=== PATIENT | male | born 1950 | race Caucasian/White ===

== ENCOUNTER 2021-11-01 17:29 | Inpatient (IN) | payer MEDICARE, SELFPAY ==
--- NOTE | ~2021-11-01 | XR_ITS ---
MODIFIED ESOPHAGRAM HISTORY: Dysphagia post recent cervical spinal fusion. TECHNIQUE: Modified barium esophagram was performed on 11/05/2021. I administered fluoroscopy and per formed the exam with speech pathologist. Patient was seated for lateral fluoroscopic imaging for ing estion of thin liquids, pudding, solids and quantified amounts, followed by thin liquids in uncontrol led amounts. This was recorded on tape. No fluoroscopic images were recorded. The DAP for this proced ure was 3.206 Gycm2. The amount of fluoroscopy time used during this procedure was 3.2 minutes. FINDINGS: Oral stage: Adequate function. Pharyngeal stage: There is vallecular residue with all consistencies the majority of which cleared wi th a second swallow. Minimal residue within the piriform sinus with solids. No laryngeal penetration or aspiration. Cervical/esophageal stage: Adequate function. IMPRESSION: Mild pharyngeal dysphagia with some residue in the vallecula and piriform sinus but no pe netration or aspiration. Please correlate with speech pathologist findings and specific feeding cecilia mmendations. Reviewed, dictated and finalized at location D. R IMPRESSION: Mild pharyngeal dysphagia with some residue in the vallecula and pi riform sinus but no penetration or aspiration. Please correlate with speech pa thologist findings and specific feeding recommendations.
[2021-11-01 18:00] VITALS: BP 109/58; PULSE 84; RESP 18; TEMP 36.8; O2SAT 98
[2021-11-01 19:20] VITALS: BMI 28.0
[2021-11-01 19:25] VITALS: BMI 28.0
[2021-11-01] MEDS: HYDROcodone/acetaminophen (*CRX) 5-325 MG TABLET 1 TAB FEED TUBE (19:55)
[2021-11-01] MEDS: SERTRALINE HCL 50 MG TABLET 150 MG FEED TUBE (20:19)
[2021-11-01] MEDS: TIZANIDINE HCL 4 MG TABLET FEED TUBE (20:20)
--- NOTE | 2021-11-01 20:22 | ADMGEN ---
This patient, Tripp Haywood, was admitted to 2nd Floor Room 205-1. Patient oriented to hospital policies and general routines including ID bracelet, bed and alarms, pain management, procedures, bathroom and other care routines, personal items, smoking policy, room service/diet, and visiting hours. Information on how to activate the Rapid Response Team has been discussed. Patient is encouraged to report perceived risks to care and to ask questions if they do not understand what they are told or what they should do.
--- NOTE | 2021-11-01 22:10 | PC.NURSE ---
Completed patient rounding. Patient is resting comfortably in bed. Patient stated that he did not need anything else at this time, and that his pain level was still manageable.
--- NOTE | 2021-11-01 23:37 | PM.IMHP ---
H&P: HPI History of Present Illness Date/Time: 11/01/21 23:37 Chief Complaint: weakness Narrative: 70-year-old man with a history of cervical myelopathy was admitted to [facility] for his C6 cervical corpectomy on October 08. Patient had retro pharyngeal swelling and dysphagia after his surgery. An NG and then ultimately a PEG tube was placed. Patient underwent decompression and posterior fusion C4 through T1 on 10/29/2021. He has remained NPO. Patient has not had much improvement in his strength but improvement and numbness of his lower extremities since the surgery. He also has ongoing lumbar spinal stenosis. Review of Systems Review of Systems: All systems reviewed & are unremarkable except as noted in HPI and below Constitutional: Constitutional: Denies chills, Reports difficulty sleeping and Denies fever(s) Eyes: Eyes: Denies blurry vision, Denies change in vision and Denies diplopia ENT: Denies nasal congestion, Denies nasal discharge and Reports neck pain Cardiovascular: Cardiovascular: Denies chest pain, Denies syncope, Denies leg edema and Denies palpitations Respiratory: Respiratory: Denies cough, Denies dyspnea and Denies stridor Gastrointestinal: Gastrointestinal: Denies constipation, Denies diarrhea, Denies nausea and Denies vomiting Genitourinary: Comments: Urinary retention Musculoskeletal: Musculoskeletal: Denies arthralgias, Denies joint swelling, Reports neck pain and Denies numbness Integumentary/Breasts: Skin/Breast: Denies pruritus, Denies lesions, Denies rash and Reports wounds Neurologic: Denies vertigo, Denies dizziness, Denies syncope and Reports focal weakness Hematologic/Lymphatic: Hematologic/Lymphatic: Denies easy bleeding and Denies easy bruising Allergic/Immunologic: Allergic/Immunologic: Denies urticaria, Denies lip swelling and Denies throat swelling [facility] Past Medical History Medical History (Updated 11/01/21 @ 23:57 by Bandar Joe MD) Dyslipidemia Dysphagia Hypertension Lumbar spinal stenosis Urinary retention Surgical History Surgical History (Updated 11/01/21 @ 23:59 by Bandar Joe MD) H/O cervical spine surgery Hx of lumbosacral spine surgery X3 Family History Family History (Updated 11/01/21 @ 19:37 by Kyara Scruggs RN) Father Acute myocardial infarction Other Hypertension Social History Social History Smoking status: Never smoker Second hand tobacco smoke exposure: No Alcohol intake: former Drinks per week: 24 Substance use: former Substance use type: marijuana Other substance usage details: just when he was a kid Spiritual care concerns: No Meds Home Medications and Allergies Home Medications Medication Instructions Recorded Confirmed Type aspirin [Adult Low Dose Aspirin] 81 mg PO DAILY 11/01/21 11/01/21 History atorvastatin 40 mg FEEDING TUBE DAILY 11/01/21 11/01/21 History docusate sodium [Colace] 50 mg FEEDING TUBE DAILY PRN 11/01/21 11/01/21 History doxazosin 2 mg FEEDING TUBE DAILY 11/01/21 11/01/21 History hydrochlorothiazide 12.5 mg FEEDING TUBE DAILY 11/01/21 11/01/21 History hydrocodone-acetaminophen [Lehr] 1 tablet FEEDING TUBE Q4H PRN 11/01/21 11/01/21 History lisinopril 10 mg FEEDING TUBE DAILY 11/01/21 11/01/21 History bsvdhgcxbnyf-pfudxycu-jxfyey 1 tablet FEEDING TUBE DAILY 11/01/21 11/01/21 History [Centrum Silver] omega-3 fatty acids [Fish Oil 1,000 mg FEEDING TUBE DAILY 11/01/21 11/01/21 History Concentrate] sertraline [Zoloft] 150 mg FEEDING TUBE HS 11/01/21 11/01/21 History sildenafil [Viagra] 100 mg FEEDING TUBE DAILY PRN 11/01/21 11/01/21 History tizanidine 4 mg FEEDING TUBE Q6H PRN 11/01/21 11/01/21 History Allergies Allergy/AdvReac Type Severity Reaction Status Date / Time No Known Drug Allergies Allergy Other Verified 11/01/21 18:27 Vital Signs Vital Signs - 24 hr 11/01/21 18:00 Temperature 36.8 C Pulse Rate 84 Respiratory Rate 18 Blood Pr
[2021-11-02] VITALS: BP 109/71; PULSE 77; RESP 16; TEMP 36.8; O2SAT 96
--- NOTE | 2021-11-02 02:10 | PC.NURSE ---
Completed patient rounding. Patient stated pain is back up to a 6, and requested pain medication and kleenex. Patient given meds and kleenex, and prepared to go back to sleep.
[2021-11-02] MEDS: HYDROcodone/acetaminophen (*CRX) 5-325 MG TABLET 1 TAB FEED TUBE ×2 (02:14→06:31)
[2021-11-02 08:00] VITALS: BP 132/74; PULSE 84; RESP 22; TEMP 36.8; O2SAT 97
[2021-11-02 08:29] LABS: Basophils Absolute Auto 0.03 K/mm3 (0.00-0.10); Basophils Percent Auto 0.3 % (0.0-1.0); Eosinophils Absolute Auto 0.31 K/mm3 (0.02-0.50); Eosinophils Percent Auto 2.8 % (1.0-6.0); Hemoglobin 11.9 g/dL (12.4-15.3); Immature Granulocyte Absolute 0.03 K/mm3 (0.00-0.00); Immature Granulocyte Percent A 0.3 % (0.0-0.0); Lymphocytes Absolute Auto 1.11 K/mm3 (1.10-4.50); Mean Corpuscular Hemoglobin 30.2 pg (27.0-31.0); Mean Corpuscular Volume 88.8 fL (78.0-102.0); Mean Platelet Volume 9.4 fl (8.7-11.0); Monocytes Percent Auto 11.7 % (2.0-11.0); Neutrophils Absolute Auto 8.4 K/mm3 (1.7-7.2); Neutrophils Percent Auto 74.9 % (50.0-70.0); Platelet Count Result 264 K/mm3 (150-420); Red Blood Count 3.94 M/mm3 (4.70-6.10); Red Cell Distribution Width 12.5 % (11.6-14.4); White Blood Count 11.2 K/mm3 (4.8-10.8)
[2021-11-02 09:46] LABS: Alanine Aminotransferase 25 U/L (16-63); Albumin Level 2.6 g/dL (3.4-5.0); Alkaline Phosphatase 63 U/L (46-116); Anion Gap 9 mmol/L (8-16); Aspartate Amino Transferase 16 U/L (15-37); Bilirubin,Total 0.4 mg/dL (0.00-1.00); Blood Urea Nitrogen 15 mg/dL (7-18); Calcium 8.4 mg/dL (8.5-10.1); Carbon Dioxide 30 mmol/L (21-32); Chloride 97 mmol/L (98-108); Estimated CRCL calculation 86 ml/min; Estimated Glomerular Filt Rate > 60; Glucose 130 mg/dL (70-99); Osmolality Calculated 284 mOsm/kg (285-295); Potassium 4.1 mmol/L (3.5-5.1); Sodium 136 mmol/L (136-145); Total Protein 6.2 g/dL (6.4-8.2)
[2021-11-02] MEDS: ASPIRIN 81 MG CHEWABLE TABLET FEED TUBE (10:06)
[2021-11-02] MEDS: ATORVASTATIN 40 MG TABLET FEED TUBE (10:06)
[2021-11-02] MEDS: hydroCHLOROthiazide 12.5 MG CAPSULE FEED TUBE (10:06)
[2021-11-02] MEDS: OMEGA 3 POLYUNSAT FATTY ACIDS 1 GM CAP XX (10:07)
[2021-11-02] MEDS: OPTI-GEN TAB 1 TABLET FEED TUBE (10:07)
[2021-11-02] MEDS: DOXAZOSIN MESYLATE 2 MG TABLET FEED TUBE (10:07)
[2021-11-02] MEDS: lisinopriL 10 MG TABLET FEED TUBE (10:07)
[2021-11-02] MEDS: TIZANIDINE HCL 4 MG TABLET FEED TUBE ×2 (10:10→16:58)
--- NOTE | 2021-11-02 10:16 | STIPEVAL ---
Thank you for referring Tripp Haywood to [facility].? The patient is scheduled to be seen for therapy?5-7x/week for 2 weeks. Please review, sign, date and return this plan of care LALITHA. I agree with and certify that the following plan of care is medically necessary. Referring Physician Date Admitting Provider: Bandar Joe MD Attending Provider: Bandar Joe MD Referring Provider: LOUANN Inpatient Evaluation Start: 11/02/21 09:42 Freq: Status: Active Protocol: Document 11/02/21 09:10 MJB (Rec: 11/02/21 10:15 [id number]) Therapy Assessment Status Assessment Status Assessment Status Evaluation Prior Level of Function Prior Swallow Level Prior Intake Method Oral Prior Diet Regular (Level 7 Diet) Prior Liquid Consistency Thin (Level 0 Diet) Prior Cognition/Communication Prior Communication Level No Impairment Prior Cognitive Function Able to Function Independently Prior Ability to Handle Finances Independent,Dependent Comments Additional Prior Level of Function Patient consumed a regular Comments diet with no difficulties prior to cervical surgery on 10-08-21. Pain Assessment Timing of Pain Assessment Timing of Pain Assessment Assessment Pain Scale Pain Scale Used Numeric (1 - 10) Self Report Pain Assessment Bilateral Neck Reported Pain Level 5 Pain Description Sharp,Shooting Pain Radiation Neck Pain Score Pain Score 5: Self Report Interventions Used Interventions Used By Clinicians Rest Bedside Swallow Evaluation General Reports Dysphagia Yes Onset of Dysphagia 10-08-21 Duration of Dysphagia 1 month History of Related Medical Diagnosis Anterior Cervical Spinal Fusion Reported Difficult Consistencies Thin Liquids,Solids Swallowing Worsening Rapidly Meal Observed Bedside Swallows Other Factors Impacting Dysphagia Cervical Collar,Head/Neck Surgery History of Pneumonia No Intake Method Prior to Swallow Gastrostomy,NPO Evaluation Diet Prior to Swallow Evaluation Regular, Level 7 Liquid Consistency Prior to Swallow Thin (0) Evaluation Cognition During Swallowing Alert Self-Feeding Behaviors Coordinated Consistency 5 mL Other Swallow Amount Dry swallow only due to severe pain and supine position in bed Vocal Quality After Swallowing Hoarse Swallow Palpation Results Delayed Triggering,Reduced Laryngeal Elevation T
[2021-11-02] MEDS: HYDROcodone/acetaminophen (*CRX) 10-325 MG TABLET 1 TAB PO ×3 (10:47→23:01)
--- NOTE | 2021-11-02 11:12 | PM.IMPN ---
Progress Note: A&P Assessment and Plan (1) Lumbar spinal stenosis: Code(s): M48.061 - Spinal stenosis, lumbar region without neurogenic claudication <Bladimir LagunasJAKE martin-C - Last Filed: 11/02/21 15:19> Status: Acute <Bladimir LagunasJAKE martin-C - Last Filed: 11/02/21 15:19> Assessment and Plan: PT and OT to see and treat. 11/02/2021 PT/OT/ST working with Pt for the following: Relieve pain, Improve movement or ability, Prevent or recover from a surgery, Rehab after injury or surgery, Work on balance to prevent a slip or fall, Learn to use assistive devices like a walker or cane, work on swallowing <Bladimir TuckerTatiana Ruiz APN-C - Last Filed: 11/02/21 15:19> (2) Dysphagia: Code(s): R13.10 - Dysphagia, unspecified <Bladimir TuckerTatiana Ruiz APN-C - Last Filed: 11/02/21 15:19> Status: Acute <Bladimir Giraldo JAKE Ruiz-C - Last Filed: 11/02/21 15:19> Assessment and Plan: NPO. Tude feeds at 50 mL/hour continuous, 1.5 calorie/mL. Protein supplement t.i.d.. Speech therapy to evaluate and treat. 11/02/2021 Continue tube feeding, Protein supplement had to be changed a little as we were unable to obtain recommended type at this time. <Bladimir TuckerTatiana Ruiz APN-Maria Luisa - Last Filed: 11/02/21 15:19> (3) Dyslipidemia: Code(s): E78.5 - Hyperlipidemia, unspecified <Bladimir TuckerTatiana Ruiz APN-C - Last Filed: 11/02/21 15:19> Status: Acute <Bladimir TuckerTatiana Ruiz APN-C - Last Filed: 11/02/21 15:19> Assessment and Plan: Continue hMG CoA a inhibitor <Bladimir TuckerTatiana Ruiz APN-C - Last Filed: 11/02/21 15:19> (4) Hypertension: Code(s): I10 - Essential (primary) hypertension <Bladimir GarrettTatiana Ruiz APN-C - Last Filed: 11/02/21 15:19> Status: Acute <Bladimir LagunasJAKE martinJonnaMaria Luisa - Last Filed: 11/02/21 15:19> Assessment and Plan: Continued doxazosin 11/02/2021 HR and BP stable, no adjustments to medications needed at this time <Bladimir RuizADRIENNEC - Last Filed: 11/02/21 15:19> (5) Urinary retention: Code(s): R33.9 - Retention of urine, unspecified <Bladimir LagunasROMY martin - Last Filed: 11/02/21 15:19> Status: Acute <Bladimir LagunasROMY martin - Last Filed: 11/02/21 15:19> Assessment and Plan: Sweeney catheter until follow-up with Urology. <Bladimir LagunasROMY martin - Last Filed: 11/02/21 15:19> (6) H/O cervical spine surgery: Code(s): Z98.890 - Other specified postprocedural states <Bladimir LagunasROMY martin - Last Filed: 11/02/21 15:19> Status: Inactive <Bladimir LagunasROMY martin - Last Filed: 11/02/21 15:19> Assessment and Plan: C-spine collar until follow-up with Orthopedics. 11/02/[address] without skin irritation at this time. <Bladimir LagunasROMY martin - Last Filed: 11/02/21 15:19> Time Spent With Patient Time: 70-year-old male presents with paraplegia, dysphagia, retention of urine status post Sweeney's catheter and chronic neck pain. Patient is undergoing OT and PT. his pain is adequately controlled. <Sancho Hunter MD - Last Filed: 11/02/21 23:06> Subjective Date/time seen: 11/02/21 11:12 Pt laying in bed complaining of pain in his neck that goes to the left arm and that his 4th and 5th fingers are numb on that side. He states this is how his arm felt since the surgery. His pain is about an 8/10. His [place] was increased to 10/325 mg. Pt states his mouth is dry and he would like something to moisten his mouth. Pt has had some numbness / weakness from about the waist down prior to his Cervical Corpectomy. Pt's main complaint is the pain in the back of the head and radiating to the left arm. <ROMY Ragsdale - Last Filed: 11/02/21 15:19> Review of Systems Constitutional: Constitutional: Reports no additional constitutional complaints, Denies body ache(s), Denies chills, Denies fever(s) and Reports headache(s) <ROMY Ragsdale - Last Filed: 11/02/21 15:19> Eyes: Eyes: Reports no
[2021-11-02 16:00] VITALS: BP 128/80; PULSE 84; RESP 18; TEMP 36.2; O2SAT 98
[2021-11-02] MEDS: SERTRALINE HCL 50 MG TABLET 150 MG FEED TUBE (21:58)
--- NOTE | 2021-11-02 23:31 | PC.NURSE ---
Pt in bed resting on side, pain med given per order for pt c/o, pt is providing his own mouth/oral care and is alert and answers all questions appropriately. Lights turned out per pt request and call carmichael within pt reach.
[2021-11-03] VITALS: BP 134/73; PULSE 80; RESP 18; TEMP 36.3; O2SAT 95
--- NOTE | 2021-11-03 02:58 | PC.NURSE ---
Pt sleeping, no distress noted, call carmichael within pt reach.
--- NOTE | 2021-11-03 05:14 | PC.NURSE ---
Pt assisted to BR x1 c gait belt and use of walker. Pt tolerated well, pt reports no BM x4 days and having only gas sxs. Info. given to charge nurse to relay to MD today for possible order of Mirilax for pt. Pt able to place himself back to bed s difficulty and minimal assist. Call light in reach of pt.
[2021-11-03] MEDS: DOCUSATE SODIUM LIQ 100 MG/10 ML UDC 50 MG FEED TUBE (05:31)
--- NOTE | 2021-11-03 05:35 | PC.NURSE ---
Pt given Colace per FT as per prn order for constipation.
[2021-11-03] MEDS: HYDROcodone/acetaminophen (*CRX) 10-325 MG TABLET 1 TAB PO ×2 (07:35→15:18)
[2021-11-03] MEDS: ASPIRIN 81 MG CHEWABLE TABLET FEED TUBE (07:36)
[2021-11-03] MEDS: OPTI-GEN TAB 1 TABLET FEED TUBE (07:36)
[2021-11-03] MEDS: lisinopriL 10 MG TABLET FEED TUBE (07:36)
[2021-11-03] MEDS: DOXAZOSIN MESYLATE 2 MG TABLET FEED TUBE (07:36)
[2021-11-03] MEDS: TIZANIDINE HCL 4 MG TABLET FEED TUBE ×3 (07:36→22:40)
[2021-11-03] MEDS: OMEGA 3 POLYUNSAT FATTY ACIDS 1 GM CAP XX (07:36)
[2021-11-03] MEDS: hydroCHLOROthiazide 12.5 MG CAPSULE FEED TUBE (07:36)
[2021-11-03] MEDS: ATORVASTATIN 40 MG TABLET FEED TUBE (07:36)
[2021-11-03 07:48] VITALS: BP 130/74; PULSE 84; RESP 18; TEMP 37.1; O2SAT 96
--- NOTE | 2021-11-03 12:39 | PC.NURSE ---
drgs to neck are dry and intact. pads on the hard cervical pads changed to clean ones. neck washed wwith wipes.
[2021-11-03 16:00] VITALS: BP 108/64; PULSE 74; RESP 20; TEMP 36.6; O2SAT 100
--- NOTE | 2021-11-03 19:49 | PC.NURSE ---
Pt/nurse introduction took place. Pt is drowsy, but in pleasant mood. Call light within reach.
[2021-11-03] MEDS: SERTRALINE HCL 50 MG TABLET 150 MG FEED TUBE (22:40)
[2021-11-03 23:45] VITALS: BP 115/67; PULSE 79; RESP 20; TEMP 36.2; O2SAT 98
[2021-11-04] MEDS: HYDROcodone/acetaminophen (*CRX) 10-325 MG TABLET 1 TAB PO ×2 (07:32→17:26)
[2021-11-04 08:00] VITALS: BP 117/76; PULSE 77; RESP 15; TEMP 36.2; O2SAT 98
[2021-11-04] MEDS: ASPIRIN 81 MG CHEWABLE TABLET FEED TUBE (09:25)
[2021-11-04] MEDS: lisinopriL 10 MG TABLET FEED TUBE (09:25)
[2021-11-04] MEDS: OPTI-GEN TAB 1 TABLET FEED TUBE (09:25)
[2021-11-04] MEDS: hydroCHLOROthiazide 12.5 MG CAPSULE FEED TUBE (09:25)
[2021-11-04] MEDS: DOXAZOSIN MESYLATE 2 MG TABLET FEED TUBE (09:25)
[2021-11-04] MEDS: ATORVASTATIN 40 MG TABLET FEED TUBE (09:25)
[2021-11-04] MEDS: OMEGA 3 POLYUNSAT FATTY ACIDS 1 GM CAP XX (09:26)
[2021-11-04 16:00] VITALS: BP 118/72; PULSE 80; RESP 16; TEMP 37; O2SAT 96
--- NOTE | 2021-11-04 17:46 | PC.NURSE ---
As directed by Yessi PIGMENT MIXER, pt was given pudding and thickened liquids to practice swallowing technique under close supervision of RN. Pt tolerated well with no evidence of aspiration or coughing. Intake of about 5 bites of pudding and three spoonfuls of thickened liquids.
[2021-11-04] MEDS: SERTRALINE HCL 50 MG TABLET 150 MG FEED TUBE (20:05)
[2021-11-05] VITALS: BP 135/81; PULSE 84; RESP 16; TEMP 37.1; O2SAT 94
[2021-11-05] MEDS: HYDROcodone/acetaminophen (*CRX) 10-325 MG TABLET 1 TAB PO ×3 (00:25→16:56)
[2021-11-05 08:00] VITALS: BP 127/82; PULSE 80; RESP 17; TEMP 36.1; O2SAT 96
[2021-11-05] MEDS: OMEGA 3 POLYUNSAT FATTY ACIDS 1 GM CAP XX (09:47)
[2021-11-05] MEDS: hydroCHLOROthiazide 12.5 MG CAPSULE FEED TUBE (09:47)
[2021-11-05] MEDS: OPTI-GEN TAB 1 TABLET FEED TUBE (09:47)
[2021-11-05] MEDS: ASPIRIN 81 MG CHEWABLE TABLET FEED TUBE (09:47)
[2021-11-05] MEDS: lisinopriL 10 MG TABLET FEED TUBE (09:47)
[2021-11-05] MEDS: ATORVASTATIN 40 MG TABLET FEED TUBE (09:48)
[2021-11-05] MEDS: DOXAZOSIN MESYLATE 2 MG TABLET FEED TUBE (09:48)
--- NOTE | 2021-11-05 13:30 | PC.NURSE ---
Spoke with Antoinette Rowe with [facility]. Gave her recommendations for 100ml wqater flushes 6 times a day. She said no need for bolus feeding as long as patient has good oral intake.
[2021-11-05 16:00] VITALS: BP 117/72; PULSE 90; RESP 16; TEMP 36.2; O2SAT 94
[2021-11-05] MEDS: SERTRALINE HCL 50 MG TABLET 150 MG FEED TUBE (21:33)
[2021-11-05] MEDS: TIZANIDINE HCL 4 MG TABLET FEED TUBE (21:34)
[2021-11-06] VITALS: BP 117/72; PULSE 90; RESP 18; TEMP 36.3; O2SAT 93
[2021-11-06] MEDS: HYDROcodone/acetaminophen (*CRX) 10-325 MG TABLET 1 TAB PO ×3 (02:18→21:39)
[2021-11-06 08:00] VITALS: BP 128/74; PULSE 88; RESP 20; TEMP 36.3; O2SAT 95
[2021-11-06] MEDS: ASPIRIN 81 MG CHEWABLE TABLET FEED TUBE (09:27)
[2021-11-06] MEDS: OMEGA 3 POLYUNSAT FATTY ACIDS 1 GM CAP XX (09:27)
[2021-11-06] MEDS: DOXAZOSIN MESYLATE 2 MG TABLET FEED TUBE (09:27)
[2021-11-06] MEDS: hydroCHLOROthiazide 12.5 MG CAPSULE FEED TUBE (09:27)
[2021-11-06] MEDS: lisinopriL 10 MG TABLET FEED TUBE (09:27)
[2021-11-06] MEDS: ATORVASTATIN 40 MG TABLET FEED TUBE (09:27)
[2021-11-06] MEDS: OPTI-GEN TAB 1 TABLET FEED TUBE (09:28)
[2021-11-06 15:35] VITALS: BP 112/84; PULSE 96; RESP 18; TEMP 36.6; O2SAT 98
[2021-11-06] MEDS: SERTRALINE HCL 50 MG TABLET 150 MG FEED TUBE (20:42)
[2021-11-06] MEDS: TIZANIDINE HCL 4 MG TABLET FEED TUBE (21:43)
[2021-11-07] VITALS: BP 106/65; PULSE 77; RESP 16; TEMP 36.4; O2SAT 96
[2021-11-07] MEDS: HYDROcodone/acetaminophen (*CRX) 10-325 MG TABLET 1 TAB PO ×3 (04:03→22:33)
[2021-11-07] MEDS: OPTI-GEN TAB 1 TABLET FEED TUBE (11:02)
[2021-11-07] MEDS: ASPIRIN 81 MG CHEWABLE TABLET FEED TUBE (11:02)
[2021-11-07] MEDS: OMEGA 3 POLYUNSAT FATTY ACIDS 1 GM CAP XX (11:02)
[2021-11-07] MEDS: DOXAZOSIN MESYLATE 2 MG TABLET FEED TUBE (11:02)
[2021-11-07] MEDS: hydroCHLOROthiazide 12.5 MG CAPSULE FEED TUBE (11:03)
[2021-11-07] MEDS: ATORVASTATIN 40 MG TABLET FEED TUBE (11:03)
[2021-11-07] MEDS: lisinopriL 10 MG TABLET FEED TUBE (11:03)
[2021-11-07 15:36] VITALS: BP 117/77; PULSE 94; RESP 18; TEMP 36.5; O2SAT 97
[2021-11-07] MEDS: SERTRALINE HCL 50 MG TABLET 150 MG FEED TUBE (21:57)
[2021-11-07] MEDS: TIZANIDINE HCL 4 MG TABLET FEED TUBE (22:37)
--- NOTE | 2021-11-07 23:00 | PC.NURSE ---
Completed change of shift report. Patient is resting comfortably in bed, with no signs of pain or discomfort. Patient just received [place] and Flexeril, and is hoping to be able to sleep. Patient stated did not need anything else at this time.
[2021-11-08] VITALS: BP 116/69; PULSE 76; RESP 16; TEMP 36.6; O2SAT 94
[2021-11-08 08:00] VITALS: BP 126/67; PULSE 88; RESP 20; TEMP 36.6; O2SAT 95
[2021-11-08] MEDS: lisinopriL 10 MG TABLET FEED TUBE (08:58)
[2021-11-08] MEDS: ATORVASTATIN 40 MG TABLET FEED TUBE (08:58)
[2021-11-08] MEDS: hydroCHLOROthiazide 12.5 MG CAPSULE FEED TUBE (08:58)
[2021-11-08] MEDS: ASPIRIN 81 MG CHEWABLE TABLET FEED TUBE (08:58)
[2021-11-08] MEDS: OPTI-GEN TAB 1 TABLET FEED TUBE (08:58)
[2021-11-08] MEDS: OMEGA 3 POLYUNSAT FATTY ACIDS 1 GM CAP XX (08:58)
[2021-11-08] MEDS: DOXAZOSIN MESYLATE 2 MG TABLET FEED TUBE (08:58)
[2021-11-08 16:00] VITALS: BP 110/66; PULSE 86; RESP 16; TEMP 37; O2SAT 96
[2021-11-08] MEDS: HYDROcodone/acetaminophen (*CRX) 10-325 MG TABLET 1 TAB PO (18:44)
--- NOTE | 2021-11-08 19:00 | PC.NURSE ---
Completed change of shift report. Patient is comfortably resting in bed. He indicated that he was not in any pain, and did not need anything at that time. Patient had a large bowel movement earlier in the day.
[2021-11-08] MEDS: SERTRALINE HCL 50 MG TABLET 150 MG FEED TUBE (21:21)
[2021-11-08] MEDS: TIZANIDINE HCL 4 MG TABLET FEED TUBE (22:48)
--- NOTE | 2021-11-08 23:10 | PC.NURSE ---
Completed patient rounding. Patient is sleeping comfortably in bed, with no signs of pain or discomfort.
[2021-11-09] VITALS: BP 97/60; PULSE 75; RESP 20; O2SAT 96
--- NOTE | 2021-11-09 02:11 | PC.NURSE ---
Completed patient rounding. Patient is sleeping comfortably in bed, with no signs of pain or discomfort.
[2021-11-09 05:56] LABS: Basophils Absolute Auto 0.06 K/mm3 (0.00-0.10); Basophils Percent Auto 0.7 % (0.0-1.0); Eosinophils Percent Auto 7.8 % (1.0-6.0); Hematocrit 33.8 % (37.0-46.0); Hemoglobin 11.2 g/dL (12.4-15.3); Immature Granulocyte Absolute 0.03 K/mm3 (0.00-0.00); Immature Granulocyte Percent A 0.3 % (0.0-0.0); Lymphocytes Absolute Auto 1.84 K/mm3 (1.10-4.50); Lymphocytes Percent Auto 20.6 % (18.0-42.0); Mean Corpuscular HGB Conc 33.1 g/dL (32.0-36.0); Mean Corpuscular Hemoglobin 30.4 pg (27.0-31.0); Mean Corpuscular Volume 91.8 fL (78.0-102.0); Mean Platelet Volume 8.6 fl (8.7-11.0); Monocytes Absolute Auto 1.05 K/mm3 (0.10-0.90); Monocytes Percent Auto 11.7 % (2.0-11.0); Neutrophils Absolute Auto 5.3 K/mm3 (1.7-7.2); Neutrophils Percent Auto 58.9 % (50.0-70.0); Platelet Count Result 338 K/mm3 (150-420); Red Blood Count 3.68 M/mm3 (4.70-6.10); Red Cell Distribution Width 12.4 % (11.6-14.4)
[2021-11-09 06:12] LABS: Anion Gap 8 mmol/L (8-16); Blood Urea Nitrogen 18 mg/dL (7-18); Calcium 8.6 mg/dL (8.5-10.1); Carbon Dioxide 29 mmol/L (21-32); Chloride 100 mmol/L (98-108); Estimated CRCL calculation 92 ml/min; Estimated Glomerular Filt Rate > 60; Glucose 103 mg/dL (70-99); Osmolality Calculated 285 mOsm/kg (285-295); Potassium 3.8 mmol/L (3.5-5.1); Sodium 137 mmol/L (136-145)
[2021-11-09 08:00] VITALS: BP 108/68; PULSE 78; RESP 16; TEMP 36.2; O2SAT 94
--- NOTE | 2021-11-09 08:26 | PM.DS ---
DS: Admitting Diagnosis Discharge Date 11/09/2021 Admitting Diagnosis Weakness and debility DS: Discharge Diagnosis Discharge Diagnosis (1) Lumbar spinal stenosis: Code(s): M48.061 - Spinal stenosis, lumbar region without neurogenic claudication Status: Acute Assessment and Plan: PT and OT to see and treat. 11/02/2021 PT/OT/ST working with Pt for the following: Relieve pain, Improve movement or ability, Prevent or recover from a surgery, Rehab after injury or surgery, Work on balance to prevent a slip or fall, Learn to use assistive devices like a walker or cane, work on swallowing Discharge Patient will discharge home with physical therapy and speech therapy Instructed to follow direction given to him by his orthopedic surgeon (2) Dysphagia: Code(s): R13.10 - Dysphagia, unspecified Status: Acute Assessment and Plan: NPO. Tude feeds at 50 mL/hour continuous, 1.5 calorie/mL. Protein supplement t.i.d.. Speech therapy to evaluate and treat. 11/02/2021 Continue tube feeding, Protein supplement had to be changed a little as we were unable to obtain recommended type at this time. Discharge Speech therapy evaluated patient able to consume thin liquids in minced food (3) Dyslipidemia: Code(s): E78.5 - Hyperlipidemia, unspecified Status: Acute Assessment and Plan: Continue hMG CoA a inhibitor (4) Hypertension: Code(s): I10 - Essential (primary) hypertension Status: Acute Assessment and Plan: Continued doxazosin 11/02/2021 HR and BP stable, no adjustments to medications needed at this time Discharge Continue home medication (5) Urinary retention: Code(s): R33.9 - Retention of urine, unspecified Status: Acute Assessment and Plan: Sweeney catheter until follow-up with Urology. Discharge Patient educated on Sweeney care Will need to follow-up with urologist (6) H/O cervical spine surgery: Code(s): Z98.890 - Other specified postprocedural states Status: Inactive Assessment and Plan: C-spine collar until follow-up with Orthopedics. 11/02/[address] without skin irritation at this time. Discharge Patient instructed to follow-up with orthopedic surgery He c-collar in place for 1 more week per patient instructed by orthopedic surgeon DS: Summary Hospital Course Reason for hospitalization: Weakness and debility status post decompression and posterior fusion C4 through T1 on 10/29/2021 Hospital Course: 70-year-old man with a history of cervical myelopathy was admitted to [facility] for his C6 cervical corpectomy on October 08. Patient had retro pharyngeal swelling and dysphagia after his surgery. An NG and then ultimately a PEG tube was placed. Patient underwent decompression and posterior fusion C4 through T1 on 10/29/2021. This day of discharge patient has not had to use a PEG tube to consume his diet or pills. He has been evaluated by speech and cleared to have a thin liquid with this soft minced food patient's incision to the back of his neck indicate infection. To follow the instructions of his orthopedic surgeon, according to patient he was told he can take a shower educated on signs and symptoms of infection. Also according to patient he is to keep his c-collar on for approximately 1 more week. Patient instructed to flush PEG tube at least twice a day. He will discharge home with PT and speech therapy and he is walking 300 feet x 2. Time Spent with Patient Time attestation: Total time spent providing and/or coordinating discharge services: Exam Narrative: GENERAL: This is a well-nourished, well-developed patient, in no apparent distress. HEAD: normocephalic, atraumatic. EYES: PERRL. Sclera clear/white. Vision is grossly intact. EARS: External ears normal, auditory canals clear and without drainage, TMs normal without perforation. Hearing grossly intact. NOSE: External nose normal with no obvious
[2021-11-09] MEDS: hydroCHLOROthiazide 12.5 MG CAPSULE FEED TUBE (08:47)
[2021-11-09] MEDS: lisinopriL 10 MG TABLET FEED TUBE (08:47)
[2021-11-09] MEDS: OMEGA 3 POLYUNSAT FATTY ACIDS 1 GM CAP XX (08:47)
[2021-11-09] MEDS: ATORVASTATIN 40 MG TABLET FEED TUBE (08:47)
[2021-11-09] MEDS: DOXAZOSIN MESYLATE 2 MG TABLET FEED TUBE (08:47)
[2021-11-09] MEDS: OPTI-GEN TAB 1 TABLET FEED TUBE (08:47)
[2021-11-09] MEDS: ASPIRIN 81 MG CHEWABLE TABLET FEED TUBE (08:47)
[2021-11-09] MEDS: DOCUSATE SODIUM LIQ 100 MG/10 ML UDC 50 MG FEED TUBE (08:49)
[2021-11-09] MEDS: HYDROcodone/acetaminophen (*CRX) 10-325 MG TABLET 1 TAB PO (08:50)
--- NOTE | 2021-11-09 11:30 | PC.NURSE ---
Reviewed discharge instructions with patient and spouse. Educated both on use of urinary leg bag during the day. Provided supplies for flushing peg tube. All questions answered. Pt escorted via wheelchair to front of hospital and discharged in private vehicle.
--- NOTE | 2021-11-10 14:31 | PC.NURSE ---
Pt states he received and understood his discharge instructions. Pt states I improved more here than I did in the 3 [address] .
== END 2021-11-09 11:30 | disposition home or self-care (01) | DRG 561 ==
PROVIDERS: Nurse Practitioner; Nurse Practitioner Family; Admitting Provider Emergency Medicine; PCP Family Medicine; Visit Provider Emergency Medicine
DX: Z47.89 Encounter for other orthopedic aftercare (principal); R13.10 Dysphagia, unspecified; R53.1 Weakness; M48.061 Spinal stenosis, lumbar region without neurogenic claudication; Z98.1 Arthrodesis status; E78.5 Hyperlipidemia, unspecified; I10 Essential (primary) hypertension; R33.9 Retention of urine, unspecified; Z93.1 Gastrostomy status
CPT/HCPCS: 36415; 80048; 80053; 85025; 92526; 92610; 92611; 97110; 97161; 97165; 97530; 97535; A9270

== ENCOUNTER 2021-11-11 07:52 | Outpatient (RCR) | payer MEDICARE, SELFPAY ==
--- NOTE | 2021-11-11 09:12 | PTOPEVAL ---
Thank you for referring Tripp Haywood to [facility].? The patient is scheduled to be seen for therapy? ____x/week for ___ weeks. Please review, sign, date and return this plan of care LALITHA. I agree with and certify that the following plan of care is medically necessary. Referring Physician Date Admitting Provider: Attending Provider: BELLE Scott Referring Provider: *PT Outpatient Evaluation Start: 11/11/21 08:16 Freq: Status: Active Protocol: Document 11/11/21 08:00 EMILIANO (Rec: 11/11/21 08:46 EMILIANO [email or web address]) Therapy Assessment Status Assessment Status Assessment Status Evaluation Outpatient Past Medical History Neurological History Hx Neurological Disorders No Significant History Cardiovascular History Hx Hypercholesterolemia Yes Hx Hypertension Yes Respiratory History Hx Respiratory Disorders No Significant History Gastrointestinal History Hx Appendectomy Yes Hx Polyps Yes Genitourinary History Hx Genitourinary Disorders No Significant History Musculoskeletal History Hx Arthritis Yes Hx Back Injury Yes Hx Back Pain Yes Hx Degenerative Disk Disease Yes Hx Fractures Yes Hx Scoliosis Yes Hx Spinal Surgery Yes Hematological History Hx Hematological Disorders No Significant History Endocrine History Hx Endocrine Disorders No Significant History HEENT History Hx Tonsillectomy Yes Hx Sinus Problems Yes Hx Ear Surgery Yes: when 5 or 6 years old Integumentary History Hx Skin Disorders No Significant History Reproductive History Hx Reproductive Disorders No Significant History Psychosocial History Hx Depression Yes Pain History Has Past Pain Affected Your Daily Life Yes History of Long-Term Prescription Pain Yes: Percocet daily; oxycontin Medication Use (Opiates) was mentioned; muscle relaxer Effective Methods of Pain Control medications somewhat effective Anesthesia History Hx Anesthesia Reactions No Significant History Evaluation Information Problem Diagnosis generalized weakness Onset 11/09/21 Subjective Information patient reports he has been Query Text:As Reported By Patient/ progressively getting weaker Family since having 2 neck surgeries. he was in the hospital for over a month, and just recently got out of a 1 week stent in skilled swing bed PT. he presents to skilled outpatient PT this date for
--- NOTE | 2021-12-07 11:53 | PTOPEVAL ---
Thank you for referring Tripp Haywood to [facility].? The patient is scheduled to be seen for therapy? ____x/week for ___ weeks. Please review, sign, date and return this plan of care LALITHA. I agree with and certify that the following plan of care is medically necessary. Referring Physician Date Admitting Provider: Attending Provider: BELLE Scott Referring Provider: AKOSUA Outpatient Evaluation Start: 11/11/21 08:16 Freq: Status: Active Protocol: Document 12/07/21 10:54 ACR (Rec: 12/07/21 11:52 ACR [email or web address]) Therapy Assessment Status Assessment Status Assessment Status Progress Outpatient Past Medical History Neurological History Hx Neurological Disorders No Significant History Cardiovascular History Hx Hypercholesterolemia Yes Hx Hypertension Yes Respiratory History Hx Respiratory Disorders No Significant History Gastrointestinal History Hx Appendectomy Yes Hx Polyps Yes Genitourinary History Hx Genitourinary Disorders No Significant History Musculoskeletal History Hx Arthritis Yes Hx Back Injury Yes Hx Back Pain Yes Hx Degenerative Disk Disease Yes Hx Fractures Yes Hx Scoliosis Yes Hx Spinal Surgery Yes: cervical spinal surgery anterior and posterior Hematological History Hx Hematological Disorders No Significant History Endocrine History Hx Endocrine Disorders No Significant History HEENT History Hx Tonsillectomy Yes Hx Sinus Problems Yes Hx Ear Surgery Yes: when 5 or 6 years old Integumentary History Hx Skin Disorders No Significant History Reproductive History Hx Reproductive Disorders No Significant History Psychosocial History Hx Depression Yes Pain History Has Past Pain Affected Your Daily Life Yes History of Long-Term Prescription Pain Yes: Percocet daily; oxycontin Medication Use (Opiates) was mentioned; muscle relaxer Effective Methods of Pain Control medications somewhat effective Anesthesia History Hx Anesthesia Reactions No Significant History Evaluation Information Problem Diagnosis generalized weakness Onset 11/09/21 Subjective Information Patient states that he feels a Query Text:As Reported By Patient/ little stronger, but it takes Family a little bit in the morning to get moving and afternoons are better for him. Patient states that he does not need assistance for any functional activities and is n
== END 2021-12-23 13:59 | disposition home or self-care (01) ==
LOC: CHSPT 07:52
PROVIDERS: PCP Family Medicine; Visit Provider Nurse Practitioner
DX: R53.1 Weakness (principal); R13.10 Dysphagia, unspecified
CPT/HCPCS: 97110; 97161; 97530

== ENCOUNTER 2021-12-06 09:54 | Outpatient (RCR) | payer MEDICARE, SELFPAY ==
--- NOTE | 2021-12-06 11:21 | STOPEVAL ---
Thank you for referring Tripp Haywood to [facility].? The patient was an evaluation only at this time due to presenting at [facility] with swallowing skills. Referring Physician Date Admitting Provider: Attending Provider: Sanchez LeeMD Referring Provider: LOUANN Outpatient Evaluation Start: 12/06/21 10:32 Freq: Status: Active Protocol: Document 12/06/21 10:00 MJB (Rec: 12/06/21 11:19 MJB [id number]) Therapy Assessment Status Assessment Status Assessment Status Evaluation Outpatient Past Medical History Past Medical History Source of Past Medical History Patient Neurological History Hx Neurological Disorders No Significant History Cardiovascular History Hx Hypercholesterolemia Yes Hx Hypertension Yes Respiratory History Hx Respiratory Disorders No Significant History Gastrointestinal History Hx Appendectomy Yes Hx Polyps Yes Genitourinary History Hx Genitourinary Disorders No Significant History Musculoskeletal History Hx Arthritis Yes Hx Back Injury Yes Hx Back Pain Yes Hx Degenerative Disk Disease Yes Hx Fractures Yes Hx Scoliosis Yes Hx Spinal Surgery Yes: cervical spinal surgery anterior and posterior Hematological History Hx Hematological Disorders No Significant History Endocrine History Hx Endocrine Disorders No Significant History HEENT History Hx Tonsillectomy Yes Hx Sinus Problems Yes Hx Ear Surgery Yes: when 5 or 6 years old Integumentary History Hx Skin Disorders No Significant History Reproductive History Hx Reproductive Disorders No Significant History Psychosocial History Hx Depression Yes Pain History Has Past Pain Affected Your Daily Life Yes History of Long-Term Prescription Pain Yes: Percocet daily; oxycontin Medication Use (Opiates) was mentioned; muscle relaxer Effective Methods of Pain Control medications somewhat effective Anesthesia History Hx Anesthesia Reactions No Significant History Evaluation Information Problem Diagnosis Dysphagia Onset October 08, 2021 Subjective Information Patient had anterior cervical Query Text:As Reported By Patient/ spinal surgery 10-08-21 Family resulting in severe inflammation and dysphagia. He had an NG tube placed post surgery due to dysphagia and aspiration. G-tube was then placed due to continued aspir
== END 2022-03-06 23:59 | disposition home or self-care (01) ==
LOC: CHSST 09:54
PROVIDERS: PCP Family Medicine; Visit Provider Family Medicine
DX: R13.10 Dysphagia, unspecified (principal)
CPT/HCPCS: 92610

== ENCOUNTER 2023-12-07 09:23 | Outpatient (CLI) | payer MEDICARE, SELFPAY ==
--- NOTE | 2023-12-07 09:33 | ECG_ITS ---
Measurements Intervals [place] Rate: 70 P: 7 PA: 148 QRS: -22 QRSD: 100 T: 21 QT: 412 QTc: 445 Interpretive Statements SINUS RHYTHM INCOMPLETE RIGHT BUNDLE BRANCH BLOCK BORDERLINE T WAVE ABNORMALITY- INFERIOR LEADS BASELINE ARTIFACT- I, II, III, AVR, AVL, AVF, V4 BORDERLINE ECG NO PREVIOUS ECG AVAILABLE FOR COMPARISON Electronically Signed On 12-07-2023 9:50:19 MAINTENANCE MECHANIC by Rudolph Sepulveda D.O.
[2023-12-07 10:10] LABS: Anion Gap 6 mmol/L (8-16); Blood Urea Nitrogen 12 mg/dL (9-20); Carbon Dioxide 28 mmol/L (22-30); Chloride 102 mmol/L (98-107); Estimated Glomerular Filt Rate > 60; Glucose 96 mg/dL (65-110); Potassium 3.9 mmol/L (3.4-5.0); Sodium 136 mmol/L (137-145)
== END 2023-12-07 09:24 | disposition home or self-care (01) ==
PROVIDERS: Anesthesiology; PCP Family Medicine; Visit Provider Otolaryngology
DX: Z01.818 Encounter for other preprocedural examination (principal); Z51.81 Encounter for therapeutic drug level monitoring; I10 Essential (primary) hypertension; I45.4 Nonspecific intraventricular block
CPT/HCPCS: 36415; 80048; 93005

== ENCOUNTER 2024-01-30 00:13 | Day surgery (SDC) | payer MEDICARE, SELFPAY ==
[2023-12-05 14:03] VITALS: BMI 30.9
--- NOTE | 2023-12-05 14:28 | PC.NURSE ---
Report to the Outpatient Waiting Room, entrance under the green pavilion located off [facility], at time _6:30AM on date __12/12/23 . Planned Procedure Time: __8:30AM . Time changes happen often and if your time is changed the preop area will call you the afternoon before. - You and your visitor will be asked to self-screen and do not enter if you have any COVID symptoms. - A mask is optional within the hospital at this time. Patients may have clear liquids (water, carbonated beverages, clear teas, apple juice) until 3 hours prior to surgery with a maximum of 20 ounces. - No food from midnight until time of surgery. Take the following medications with a SIP of water the morning of surgery: __SERTRALINE DO NOT STOP ANY OF YOUR OTHER PRESCRIPTION MEDICATIONS PRIOR TO SURGERY ?EXCEPT THE FOLLOWING Medications to discontinue per physician ____HOLD ASPIRIN PER DR QUIJANO. HOLD ALL VITAMINS/SUPPLEMENTS 3 DAYS PRE-OP PER ANESTHESIA- LAST DOSE 12/08/23 Please no make-up, nail ecuadorean, hairspray, perfume, deodorant, or body powder the day of surgery. No jewelry (including any body piercings) or valuables the day of surgery, leave them at home. Please take a shower or bath the night before, or the morning of, surgery with an antibacterial soap. Wear comfortable, loose fitting clothing. Children are encouraged to wear pajamas. - Jewelry must be removed prior to entering the operating room. Rings and piercings that are not removed may be cut off. - The hospital will not accept responsibility for valuables. - Please leave all valuables, including medications, at home the day of surgery. If you are going home after surgery, a licensed batch mixing truck driver must drive you home. - NO public transportation without another adult if you receive anesthesia. - We recommend that an adult stay with you for 24 hours following discharge. - We also recommend that you do not drive, make important decision, drink alcoholic beverages, or take any drugs that were not prescribed by your health care provider for at least 24 hours after your discharge time. Follow any additional instructions given to you from your surgeon. If you or anyone in your household have experienced Covid symptoms in the past week, please notify your surgeon or the nurse liaison at the phone number below for possible testing. Telephone instructions given to ___PATIENT and asked if any additional questions and then verbalized understanding. Patient advised to call surgeon office or pre surgery nurse liaison [phone] if any additional questions.
--- NOTE | 2023-12-10 15:09 | PM.IMHP ---
H&P: HPI History of Present Illness Date/Time: 12/10/23 15:09 Chief Complaint: Chronic sinusitis septal deviation turbinate hypertrophy Narrative: planned procedure Review of Systems Review of Systems: All systems reviewed & are unremarkable except as noted in HPI and below [facility] Past Medical History Medical History Dyslipidemia Dysphagia Hypertension Lumbar spinal stenosis Urinary retention Surgical History Surgical History H/O cervical spine surgery Hx of lumbosacral spine surgery X3 Family History Family History Father Acute myocardial infarction Hypertension Heart disease Sibling Hypertension Social History Social History Smoking status: Never smoker Second hand tobacco smoke exposure: No Alcohol intake: current Drinks per week: 28 Substance use: never Substance use type: marijuana Other substance usage details: just when he was a kid Lack of Transportation: No Lack of Food: Never True Current Housing: I Have Housing Concerned About Future Housing: No Difficulty Paying Gas/Electric Bills: No Difficulty Paying for Meds: No Currently Unemployed: No Education: Trade/Vocational Certificate Difficulty w/ Childcare or Family Care: No Living arrangements: with family Additional living arrangements comments: Spiritual care concerns: No Meds Home Medications and Allergies Home Medications Medication Instructions Recorded Confirmed Type aspirin 81 mg tablet 81 mg PO DAILY 11/01/21 12/05/23 History atorvastatin 40 mg tablet 40 mg PO DAILY #0 tabs 11/09/21 12/05/23 Rx hiupzzzvswox-jyhzdopm-wkfjku tablet 1 tablet PO DAILY #0 tabs 11/09/21 12/05/23 Rx omega-3 fatty acids 1,000 mg 1,000 mg PO DAILY #0 caps 11/09/21 12/05/23 Rx capsule (Fish Oil Concentrate) sildenafil 100 mg tablet (Viagra) 100 mg PO DAILY PRN Sexual 11/09/21 12/05/23 Rx Activity #0 tabs finasteride 5 mg tablet 5 mg PO DAILY 08/07/23 12/05/23 History fluticasone propionate 50 2 spray intranasal BID #16 mL 11/02/23 12/05/23 Rx mcg/actuation nasal spray,suspension (Flonase Allergy Relief) azelastine 137 mcg (0.1 %) nasal 1 spray intranasal Q12H #30 mL 11/28/23 12/05/23 Rx spray aerosol lisinopril 10 1 tablet PO QAM 12/05/23 12/05/23 History mg-hydrochlorothiazide 12.5 mg tablet sertraline 100 mg tablet (Zoloft) 100 mg PO QAM 12/05/23 12/05/23 History sertraline 50 mg tablet 50 mg PO QAM 12/05/23 12/05/23 History prednisone 5 mg tablet 5 mg PO .daily #6 tabs 12/06/23 12/06/23 Rx Allergies Allergy/AdvReac Type Severity Reaction Status Date / Time No Known Allergies Allergy Verified 12/05/23 13:58 Exam Narrative: Kumar deviation turbinate hypertrophy chronic sinuses Assessment and Plan Assessment and plan (1) Chronic sinusitis: Code(s): J32.9 - Chronic sinusitis, unspecified Status: Acute Assessment and Plan: OR for image guided endoscopic bilateral maxillary antrostomies total ethmoidectomies frontal sinusotomies, right-sided sphenoidotomy, endoscopic assisted septoplasty, bilateral inferior turbinate reduction with outfracture. Risks were discussed including bleeding infection damage to surrounding structures need for further procedures CSF leak brain brain damage change in vision total blindness failure to resolve symptoms septal perforation damage to any structure of the clavicle by myself. Damage to any structure during induction and maintenance of anesthesia including vocal cord paralysis. Time off work time off school inherent risk of narcotic use. (2) Hypertrophy of both inferior nasal turbinates: Code(s): J34.3 - Hypertrophy of nasal turbinates Status: Acute (3) N
--- NOTE | 2024-01-22 08:48 | PC.NURSE ---
Report to the Outpatient Waiting Room, entrance under the green pavilion located off [facility], at time _0600 on date __01/30/24 . Planned Procedure Time: __0730 . Time changes happen often and if your time is changed the preop area will call you the afternoon before. - You and your visitor will be asked to self-screen and do not enter if you have any COVID symptoms. - A mask is optional within the hospital at this time. Patients may have clear liquids (water, carbonated beverages, clear teas, apple juice) until 3 hours prior to surgery( 4:30 AM ) with a maximum of 20 ounces. - No food from midnight until time of surgery - Infants may have breast milk until 4 hours before surgery, formula 6 hours prior to surgery. - Children will be allowed to drink immediately following surgery. If applicable, please bring a bottle or sippy cup to assist with drinking. Juice, water, soda, and popsicles are readily available. For infants on formula, please bring formula the day of surgery. Pacifiers are allowed. Take the following medications with a SIP of water the morning of surgery: SERTRALINE DO NOT STOP ANY OF YOUR OTHER PRESCRIPTION MEDICATIONS PRIOR TO SURGERY ?EXCEPT THE FOLLOWING Medications to discontinue per physician _PT STATES HOLD ASPIRIN 7 DAYS PRE OP PER DR QUIJANO.LAST DOSE 01/22/24. HOLD ALL VITAMINS AND SUPPLEMENTS 3 DAYS PRE OP.LAST DOSE 01/26/24 Please no make-up, nail emirati, hairspray, perfume, deodorant, or body powder the day of surgery. No jewelry (including any body piercings) or valuables the day of surgery, leave them at home. Please take a shower or bath the night before, or the morning of, surgery with an antibacterial soap. Wear comfortable, loose fitting clothing. Children are encouraged to wear pajamas. - Jewelry must be removed prior to entering the operating room. Rings and piercings that are not removed may be cut off. - The hospital will not accept responsibility for valuables. - Please leave all valuables, including medications, at home the day of surgery. If you are going home after surgery, a licensed tier truck driver must drive you home. - NO public transportation without another adult if you receive anesthesia. - We recommend that an adult stay with you for 24 hours following discharge. - We also recommend that you do not drive, make important decision, drink alcoholic beverages, or take any drugs that were not prescribed by your health care provider for at least 24 hours after your discharge time. For Pediatric surgeries, we recommend two adults accompany the child home. Follow any additional instructions given to you from your surgeon. If you or anyone in your household have experienced Covid symptoms in the past week, please notify your surgeon or the nurse liaison at the phone number below for possible testing. Telephone instructions given to ____PATIENT and asked if any additional questions and then verbalized understanding. Patient advised to call surgeon office or pre surgery nurse liaison [phone] if any additional questions.
--- NOTE | 2024-01-22 08:50 | PC.NURSE ---
PT STATES NO CHANGE IN HEALTH HX SINCE LAST INTERVIEW ON 12/05/23 SURGERY WAS RESCHEDULED DUE TO INSURANCE ISSUES
--- NOTE | 2024-01-29 12:52 | WPDANESEPPF ---
Anes - Initial Pre Proc Eval Procedure: Operation Date: 01/30/24 07:30 Proposed Procedures p Image Guided Endoscopic Bilateral Antrostomy, Total Ethmoidectomy, Frontal Sinusotomy, Right Side Sphenoidotomy, Bilateral Inferior Turbinate Reduction with Outfracture - Viktor Massey MD s Endoscopic Septoplasty - Viktor Massey MD Date/Time: 01/29/24 12:52 Surgeon: Viktor Massey MD Pre Op Diagnosis: Chr Sinusitis, Septal Deviation Patient Data Age: 73 Gender: M Height: 1.78 m Weight: 98 kg Allergies Allergy/AdvReac Type Severity Reaction Status Date / Time No Known Allergies Allergy Verified 01/22/24 08:41 Home Medications Medication Instructions Recorded Confirmed Type aspirin 81 mg tablet 81 mg PO DAILY 11/01/21 01/22/24 History atorvastatin 40 mg tablet 40 mg PO DAILY #0 tabs 11/09/21 01/22/24 Rx pgkjvkiugbix-ccsevrab-dtysgf tablet 1 tablet PO DAILY #0 tabs 11/09/21 01/22/24 Rx omega-3 fatty acids 1,000 mg 1,000 mg PO DAILY #0 caps 11/09/21 01/22/24 Rx capsule (Fish Oil Concentrate) sildenafil 100 mg tablet (Viagra) 100 mg PO DAILY PRN Sexual 11/09/21 01/22/24 Rx Activity #0 tabs finasteride 5 mg tablet 5 mg PO DAILY 08/07/23 01/22/24 History fluticasone propionate 50 2 spray intranasal BID #16 mL 11/02/23 01/22/24 Rx mcg/actuation nasal spray,suspension (Flonase Allergy Relief) azelastine 137 mcg (0.1 %) nasal 1 spray intranasal Q12H #30 mL 11/28/23 01/22/24 Rx spray aerosol lisinopril 10 1 tablet PO QAM 12/05/23 01/22/24 History mg-hydrochlorothiazide 12.5 mg tablet sertraline 100 mg tablet (Zoloft) 100 mg PO QAM 12/05/23 01/22/24 History sertraline 50 mg tablet 50 mg PO QAM 12/05/23 01/22/24 History prednisone 10 mg tablet 10 mg PO .daily #4 tabs 01/26/24 01/26/24 Rx Patient hx anesthesia problems: none Family hx anesthesia problems: none Results Review: All pre-operative results and documents have been reviewed as part of the pre-operative evaluation. [facility] Past Medical History Medical History Dyslipidemia Dysphagia Hypertension Lumbar spinal stenosis Urinary retention Surgical History Surgical History H/O cervical spine surgery Hx of lumbosacral spine surgery X3 Family History Family History Father Acute myocardial infarction Hypertension Heart disease Sibling Hypertension Social History Social History Smoking status: Never smoker Second hand tobacco smoke exposure: No Alcohol intake: current Drinks per week: 28 Substance use: never Substance use type: marijuana Other substance usage details: just when he was a kid Lack of Transportation: No Lack of Food: Never True Current Housing: I Have Housing Concerned About Future Housing: No Difficulty Paying Gas/Electric Bills: No Difficulty Paying for Meds: No Currently Unemployed: No Education: Trade/Vocational Certificate Difficulty w/ Childcare or Family Care: No Living arrangements: with family Additional living arrangements comments: Spiritual care concerns: No Anes - Eval Final PreProcedure Day of Procedure 01/29/24 12:52 Patient weight: obese Heart: regular rate and rhythm Lungs: clear to auscultation Airway: Mallampati scale class III Neurological: alert and oriented Last oral intake: >/= 8 hours ASA classification: III Emergent: no Anesthetic plan: proceed Anesthesia type and monitoring: general ETT and standard monitoring Results Review: All pre-operative results and documents have been reviewed as part of the pre-operative evaluation. Informed Consent: The patient's anesthetic plan and its attendant risks and benefits were discussed with the patient/family/POA. Questions were solicited and answers provided to t
--- NOTE | 2024-01-29 16:55 | PM.IMHP ---
H&P: HPI History of Present Illness Date/Time: 01/29/24 16:55 Chief Complaint: chronic sinus septal deviation turbinate hypertrophy Narrative: planned procedure Review of Systems Review of Systems: All systems reviewed & are unremarkable except as noted in HPI and below [facility] Past Medical History Medical History Dyslipidemia Dysphagia Hypertension Lumbar spinal stenosis Urinary retention Surgical History Surgical History H/O cervical spine surgery Hx of lumbosacral spine surgery X3 Family History Family History Father Acute myocardial infarction Hypertension Heart disease Sibling Hypertension Social History Social History Smoking status: Never smoker Second hand tobacco smoke exposure: No Alcohol intake: current Drinks per week: 28 Substance use: never Substance use type: marijuana Other substance usage details: just when he was a kid Lack of Transportation: No Lack of Food: Never True Current Housing: I Have Housing Concerned About Future Housing: No Difficulty Paying Gas/Electric Bills: No Difficulty Paying for Meds: No Currently Unemployed: No Education: Trade/Vocational Certificate Difficulty w/ Childcare or Family Care: No Living arrangements: with family Additional living arrangements comments: Spiritual care concerns: No Meds Home Medications and Allergies Home Medications Medication Instructions Recorded Confirmed Type aspirin 81 mg tablet 81 mg PO DAILY 11/01/21 01/22/24 History atorvastatin 40 mg tablet 40 mg PO DAILY #0 tabs 11/09/21 01/22/24 Rx oixrrslzhfii-zwauvjfp-dtnwcb tablet 1 tablet PO DAILY #0 tabs 11/09/21 01/22/24 Rx omega-3 fatty acids 1,000 mg 1,000 mg PO DAILY #0 caps 11/09/21 01/22/24 Rx capsule (Fish Oil Concentrate) sildenafil 100 mg tablet (Viagra) 100 mg PO DAILY PRN Sexual 11/09/21 01/22/24 Rx Activity #0 tabs finasteride 5 mg tablet 5 mg PO DAILY 08/07/23 01/22/24 History fluticasone propionate 50 2 spray intranasal BID #16 mL 11/02/23 01/22/24 Rx mcg/actuation nasal spray,suspension (Flonase Allergy Relief) azelastine 137 mcg (0.1 %) nasal 1 spray intranasal Q12H #30 mL 11/28/23 01/22/24 Rx spray aerosol lisinopril 10 1 tablet PO QAM 12/05/23 01/22/24 History mg-hydrochlorothiazide 12.5 mg tablet sertraline 100 mg tablet (Zoloft) 100 mg PO QAM 12/05/23 01/22/24 History sertraline 50 mg tablet 50 mg PO QAM 12/05/23 01/22/24 History prednisone 10 mg tablet 10 mg PO .daily #4 tabs 01/26/24 01/26/24 Rx Allergies Allergy/AdvReac Type Severity Reaction Status Date / Time No Known Allergies Allergy Verified 01/22/24 08:41 Exam Narrative: chronic appearing sinuses septal deviation Assessment and Plan Assessment and plan (1) Hypertrophy of both inferior nasal turbinates: Code(s): J34.3 - Hypertrophy of nasal turbinates Status: Acute Assessment and Plan: OR for image guided endoscopic bilateral maxillary antrostomies total ethmoidectomies frontal sinusotomies, bilateral sphenoidotomy, endoscopic assisted septoplasty, bilateral inferior turbinate reduction with outfracture.? Risks were discussed including bleeding infection damage to surrounding structures need for further procedures CSF leak brain brain damage change in vision total blindness failure to resolve symptoms septal perforation damage to any structure of the clavicle by myself.? Damage to any structure during induction and maintenance of anesthesia including vocal cord paralysis.? Time off work time off school inherent risk of narcotic use. (2) Chronic sinusitis: Code(s): J32.9 - Chronic sinusitis, unspecified Status: Acute (3) Nasal septal dev
[2024-01-30] VITALS (10 sets, daily range): BP systolic 109–151; BP diastolic 76–93; PULSE 66–93; RESP 14–20; TEMP 36–36.4; O2SAT 92–97
[2024-01-30] MEDS: ACETAMINOPHEN 500 MG TABLET 1000 MG PO (07:00)
[2024-01-30] MEDS: LACTATED RINGERS 1,000 ML 30 ML IV CONT ×2 (07:00→11:31)
--- NOTE | 2024-01-30 07:16 | WPDHPUPDATE1 ---
History and Physical Update Update Date/Time: 01/30/24 07:16 History and Physical has been reviewed, including an updated exam of the patient. There are NO changes in the patient's condition. Risks, benefits, and alternatives have been discussed and questions answered. Patient agrees to proceed with procedure.
[2024-01-30] MEDS: ceFAZolin 2 GM/D5W 50 ML 2 GM/50 ML BAG IVPB (07:25)
[2024-01-30] MEDS: OXYMETAZOLINE HCL 0.05% NAS 15 ML BTL (*BKC) 1 SPRAY NASAL (07:55)
[2024-01-30] MEDS: LIDO 1%/EPINEPHRINE 1:100,000 50 ML VIAL INFILTRATE (07:56)
[2024-01-30] MEDS: MUPIROCIN 2% OINT 22 GM TUBE 1 APPLIC EACH NARE (10:39)
--- NOTE | 2024-01-30 11:55 | P.OP_ITS ---
Procedure Note - Detailed Date of Procedure 01/30/24 Pre-op Diagnosis Chr Sinusitis, Septal DeviationNote hypertrophy Post-op Diagnosis Same Procedure Performed endoscopic assisted septoplasty inferior turbinate reduction with outfracture bilaterally bilateral image guided endoscopic maxillary antrostomies total ethmoidectomy sphenoidotomy is frontal sinusotomies right-sided frontal drill out to be propel stents placed bilaterally Surgeon Viktor Massey MD Anesthesia General Indications see above Findings diffuse polypoid edema throughout really ostia attic bone had to drill the right frontal the connect the 2 outflow tracts. No damage to orbit no damage to skull base small septal tear on the left side 0 severely deviated left septum as well. Description of Procedure Patient identified consent verified preop. Patient to the operating. Time- out performed. General anesthesia induced endotracheal tube secured airway patient prepped draped position procedure confirmed 2nd time-out performed. Image guidance initiated confirmed Afrin-soaked pledgets a fronts removed. Everything looked at 0 degree scope used 15 cc 1% local 1 100,000 parts epinephrine checked bilateral nasal septum inferior turbinates Daniel incision made left-sided left nasal septal flap elevated us long tear with 2 cm long over the spur no tears on the right side right side elevated deviated septum removed Lashawn forceps Himanshu forceps osteotome. FloSeal place [place] incision closed for a to 5 0 fast gut sutures. Turbinates reduced submucosal plane using microdebrider 2.5 blade IntooBR. Then outfractured. Maxillary sinuses opened with double ball tip probe backbiter straight through cut microdebrider image guidance no damage to nasolacrimal duct no damage to orbit great care was taken to ensure 70 degree scope that surgical os connected to the natural os. Total ethmoidectomies performed with [place] microdebrider image guidance sphenoidotomies performed with [place] image guidance sphenoid punch [place] 0 there was thick mucus in both sphenoids. Frontals performed with 70 degree frontal instruments including hose min Cobra and a drill on the right side 70 degree high speed. No damage lanie no damage to skull base propel stents placed Zuluaga splints placed Nova pack placed blood loss 50 cc the area was copiously irrigated with sterile normal saline Zuluaga splints placed at the end of it. Sutured anteriorly using a through mattress nylon suture Estimated Blood Loss 50 Drains No Packing Yes ( Nova pack) Pathology None sent Complications No immediate complications Condition Stable Disposition PACU [facility] Billing Surgery - Charge Forward: Surgery Billing
[2024-01-30] MEDS: fentaNYL CITRATE INJ (*CRX) 100 MCG/2 ML VIAL 25 MCG IV PUSH ×4 (12:02→12:24)
[2024-01-30] MEDS: oxyCODONE HCL (*CRX) 5 MG TAB IR PO (13:01)
== END 2024-01-30 13:37 | disposition home or self-care (01) ==
PROVIDERS: PCP Family Medicine; Visit Provider Otolaryngology
PROC: (CPT 30520; principal; 2024-01-30 07:30)
PROC: (CPT 30520; 2024-01-30 07:30)
DX: J32.9 Chronic sinusitis, unspecified (principal); J34.2 Deviated nasal septum; J34.3 Hypertrophy of nasal turbinates; R09.82 Postnasal drip; R09.81 Nasal congestion; E78.5 Hyperlipidemia, unspecified; I10 Essential (primary) hypertension; Z82.49 Family history of ischemic heart disease and other diseases of the circulatory system; F10.90 Alcohol use, unspecified, uncomplicated; Z79.82 Long term (current) use of aspirin; Z79.52 Long term (current) use of systemic steroids; Z79.899 Other long term (current) drug therapy
CPT/HCPCS: 30520; 30140; 31256; 31257; 31276; A9270; C2625; J0690; J1100; J1596; J2371; J2405; J2704; J3010; J7050; J7120